=== PATIENT | male | born 1950 | race Caucasian/White ===

== ENCOUNTER 2020-06-17 08:56 | Emergency (ER) | payer MEDICARE, SELFPAY ==
[2020-06-17 09:02] VITALS: BP 133/78; PULSE 83; RESP 14; TEMP 36.8; O2SAT 99; BMI 22.0
--- NOTE | 2020-06-17 09:08 | CT_ITS ---
WS: [id number] CT HEAD TECHNIQUE: Noncontrast CT of the head obtained from the skullbase to the vertex. CLINICAL INFORMATION: headache COMPARISON: MRI 5 18,016 DLP: 702.[address] scans at [facility] use at least one of these dose optimization techniques: automat ed exposure control; mA and/or kV adjustment per patient size (includes targeted exams where dose is matched to clinical indication); or iterative reconstruction. FINDINGS: No evidence of intracranial hemorrhage or mass effect. Ventricular system and basal cisterns are ross nt. Mild small vessel changes with mild parenchymal volume loss. No extra-axial fluid collections. No evidence of mass or mass effect. Normal sprague-white differentiation. Paranasal sinuses and mastoid air cells are well aerated. .Normal visualized soft tissues. CT/CT head wo con* [id number] IMPRESSION: 1. No evidence of intracranial hemorrhage or mass effect. 2. Mild small vessel changes. Mild parenchymal volume loss. 3. No acute intracranial findings. Attempted Casey Narayan DO at 06/17/2020 9:46 AM.
--- NOTE | 2020-06-17 09:31 | CT_ITS ---
WS: [id number] CT CERVICAL SPINE TECHNIQUE: Noncontrast CT of the cervical spine with coronal and sagittal reformatted images. CLINICAL INFORMATION: neck pain COMPARISON: None. DLP: 406.[address] scans at [facility] use at least one of these dose optimization techniques: automat ed exposure control; mA and/or kV adjustment per patient size (includes targeted exams where dose is matched to clinical indication); or iterative reconstruction. FINDINGS: Straightening of the normal cervical lordosis. Moderate spondylitic changes. Disc space narrowing wit h osteophytic ridging worse at C5-C6 and C6-C7. Normal C1-C2 articulation. Normal C1 ring. C2-C3: Mild left and no significant right foraminal narrowing. Moderate left facet arthropathy. Tiny central protrusion. Mild central canal stenosis. C3-C4: Shallow central disc protrusion. Mild central canal stenosis. Moderate right and no significan t left foraminal narrowing. Moderate facet arthropathy. C4-C5: Disc osteophyte complex with moderate central canal stenosis. Moderate left facet arthropathy. Moderate left and no significant right foraminal narrowing. C5-C6: Disc osteophyte complex with endplate ridging. Moderate central canal stenosis. Severe left an d mild right bony foraminal narrowing. Mild facet arthropathy. C6-C7: Left eccentric disc osteophytic ridging. Severe left and mild right bony foraminal narrowing. Mild central canal stenosis. C7-T1: Osteophytic ridging. Mild left and no significant right foraminal narrowing. Lung apices are w ell aerated. Solid right parotid lesion measuring 1.6 x 1.9 CM. This appears slightly increased in size since 2016 . Recommend interval follow-up with contrast-enhanced neck CT and ENT consultation. CT/CT cervical spin wo con* [id number] IMPRESSION: 1. Moderate spondylitic changes with straightening of the normal cervical lord osis. 2. Moderate central canal stenosis worse at C4-C5 C5-C6 and C6-C7 due to disc osteophyte complexes. Recommend further evaluation with MRI. 3. Multilevel moderate to severe bony foraminal narrowing worse at right C3-C4 , left C4-C5, left C5-C6 and left C6-C7. 4. Moderate to advanced asymmetric facet arthropathy worse at right C3-C4, lef t C4-C5, 5. Solid right parotid lesion suspicious for parotid neoplasm more prominent c ompared to 2016 today measuring 1.6 x 1.9 CM. Recommend follow-up contrast-enha nced neck CT and ENT consultation. Notified Casey Narayan DO at 06/17/2020 10:30 AM.
[2020-06-17 09:38] VITALS: BP 137/84; RESP 18; O2SAT 96
[2020-06-17 09:42] LABS: Basophils # 0.1 10^3/uL (0.0-0.1); Basophils % 0.4 %; Eosinophils # 0.3 10^3/uL (0.0-0.8); Eosinophils % 1.9 %; Hematocrit 46.7 % (42.0-52.0); Hemoglobin 15.5 g/dL (11.7-16.6); Lymphocytes # 2.4 10^3/uL (0.8-4.8); Lymphocytes % 16.9 %; Mean Corpuscular HGB Conc 33.2 g/dL (30.0-36.0); Mean Corpuscular Hemoglobin 30.8 pg (28.0-34.0); Mean Corpuscular Volume 92.7 fL (80-94); Mean Platelet Volume 9.1 fL (7.4-10.4); Monocytes # 1.1 10^3/uL (0.2-0.9); Monocytes % 7.9 %; Neutrophils # 10.29 10^3/uL (1.8-7.7); Neutrophils % 72.5 %; Nucleated Red Blood Cells % 0 %; Platelet Count 406 10^3/cmm (130-400); Red Blood Count 5.04 10^6/uL (4.1-5.3); Red Cell Distribution Width 15.2 % (12.1-15.1); White Blood Count 14.2 10^3/uL (4.0-10.0)
[2020-06-17 10:01] VITALS: BP 130/83; PULSE 94; RESP 18; O2SAT 98
[2020-06-17 10:04] LABS: Alanine Aminotransferase 11 U/L (0-41); Albumin Level 4.6 g/dL (3.5-5.2); Alkaline Phosphatase 71 IU/L (40-130); Anion Gap 17.5 (5-19); Aspartate Amino Transferase 14 U/L (0-40); Blood Urea Nitrogen 11 mg/dL (8-23); Calcium 9.3 mg/dL (8.5-10.5); Carbon Dioxide 22 mmol/L (22-29); Chloride 102 mmol/L (98-107); Globulin 3.2 g/dL (1.3-4.6); Glucose 95 mg/dL (65-115); Osmolality Calculated 283 mOsm/kg (285-295); Potassium 4.5 mmol/L (3.5-5.1); Sodium 137 mmol/L (136-145); Total Bilirubin 0.3 mg/dL (0.15-1.2); Total Protein 7.8 g/dL (6.6-8.7)
[2020-06-17 10:21] LABS: Add Urine Microscopic? NO
[2020-06-17 10:27] LABS: Bilirubin Urine Neg (Negative); Blood Urine Neg (Negative); Glucose Urine UA Norm (Normal); Ketones Urine 1+ (Negative); Leukocyte Esterase Urine Negative (Negative); Nitrate Urine Negative (Negative); Protein Urine Neg (Negative); Specific Gravity, Urine 1.015 (1.005-1.030); Urine Appearance Clear (CLEAR); Urine Color Yellow (Yellow); Urobilinogen Urine Norm (Negative)
[2020-06-17 11:00] VITALS: BP 132/98; PULSE 84; RESP 18; O2SAT 97
--- NOTE | 2020-06-17 11:01 | W.ED.HA ---
HPI - Headache General: Chief Complaint: Headache Stated Complaint: HEAD PAIN, Time Seen by Provider: 06/17/20 09:04 History of Present Illness: HPI Narrative: 69-year-old male presents the emergency room with complaint of headache and neck pain for the last week he was seen by a midlevel and started on Keflex for a cellulitis was seen back by Dr. Herman today at the urgent care referred here he was concerned because of the neck and headache pain that he needed more advanced imaging. Does get some pain radiating down from his head down to the neck but does not radiate down into the arms or hands fully. This is been waxing and waning he is states the pain now is at a level of 3 of 10 but at times will get up to 10 of 10. He has not had any advanced imaging. MD elicited complaint: headache Onset (ago): week(s) (1) Onset description: suddenly Location: occipital and down into neck Severity: severe Quality & Timing: sharp and intermittent Exacerbating factors: movement of head/neck Relieving factors: rest Associated symptoms: Deny chest pain, confusion, cough, diaphoresis, eye pain, eye redness, fever(s), lightheadedness, loss of vision, malaise, nausea, neck stiffness, numbness, paresthesias, pre-syncope, rash, seizures, short of breath, sound sensitivity, syncope, vomiting or weakness Treatments prior to arrival: acetaminophen Review of Systems Const: Denies: fever(s), malaise or diaphoresis ENMT: Denies: throat pain, ear or mastoid pain, nasal discharge or nasal congestion Card: Denies: chest pain, lightheadedness, syncope or pre-syncope Resp: Denies: dyspnea, productive cough or non-productive cough GI: Denies: nausea or vomiting : Denies: flank pain, dysuria, urinary frequency or urinary urgency Skin/Breast: Denies: rash Neuro: Denies: confusion PFSH ED PFSH: Medical History Basal cell carcinoma Nose COPD (chronic obstructive pulmonary disease) Dementia 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 Neuropathy Unilateral occipital headache Social History Smoking and tobacco status: current every day smoker cigarettes Packs smoked per day: 0.5 Physical Exam Const: COMMON NORMALS: no acute distress GENERAL APPEARANCE: cooperative and comfortable ORIENTATION/CONSCIOUSNESS: Yes awake, Yes oriented to person, Yes oriented to place and Yes oriented to time HENMT: COMMON NORMALS: normocephalic, atraumatic and hearing grossly normal bilaterally HEAD & SCALP: normocephalic and atraumatic Eye: COMMON NORMALS: Equal, round and reactive pupils present, EOMs intact bilaterally, conjunctivae normal and no scleral icterus CONJUNCTIVA: Yes conjunctivae normal PUPIL: Yes Equal, round and reactive pupils present Neck/C-Spine: COMMON NORMALS: full ROM, no lymphadenopathy, supple and no JVD Lymph: LYMPHATIC: no lymphadenopathy noted and no lymphedema noted Resp: COMMON NORMALS: normal respiratory effort, No retractions, No use of accessory muscles and clear to auscultation bilaterally AUSCULTATION: clear to auscultation bilaterally Cardio: COMMON NORMALS: no JVD, regular rate, regular rhythm and No murmurs present (Cardio) RATE: regular rate RHYTHM: regular rhythm GI: COMMON NORMALS: Soft to palpation and No hepatosplenomegaly present AUSCULTATION: Yes normoactive bowel sounds PALPATION: Yes Soft to palpation, No Tenderness to palpation present (GI), No Guarding due to palpation present (GI) and Yes No hepatosplenomegaly present Extremity: COMMON NORMALS: normal to inspection, capillary refill normal, no clubbing, cyanosis or edema, no calf tenderness and no pedal edema Neuro: SENSORIUM/ORIENTATION: Yes oriented to person, Yes oriented to place and Yes oriented to time Skin: COMMON NORMALS: no rashes or lesions noted GENERAL SKIN EXAM: no rashes or lesions noted Course Vital Signs: Vital signs: Vital Signs Temperature 98.2 F 06/17/20 09:02 Pulse Rate 92 06/17/20 11:24 Respiratory Rate 18 06/17/20 11:24 Blood Pressure 132/98 06/17/20 11:24 Pulse Oximetry 95 06/17/20 11:24 MDM - Headache MDM Narrative: Medical decision making narrative: The source of his pain is mostly musculoskeletal he did have some stenosis in both central and foraminal on his CT he probably will require more advanced imaging encouraged him to follow-up with his primary care doctor to discuss the need for that. Lab Data: Labs: Lab Results 09/06/17/20 06/17/20 Range/Units 09:35 09:35 09:44 WBC 14.2 H (4.0-10.0) 10^3/ uL RBC 5.04 (4.1-5.3) 10^6/u L Hgb 15.5 (11.7-16.6) g/dL Hct 46.7 (42.0-52.0) % MCV 92.7 (80-94) fL MCH 30.8 (28.0-34.0) pg MCHC 33.2 (30.0-36.0) g/dL RDW 15.2 H (12.1-15.1) % Plt Count 406 H (130-400) 10^3/c mm MPV 9.1 (7.4-10.4) fL Neut % (Auto) 72.5 % Lymph % (Auto) 16.9 % [place]elope % (Auto) 7.9 % Eos % (Auto) 1.9 % Baso % (Auto) 0.4 % Neut # (Auto) 10.29 H (1.8-7.7) 10^3/u L Lymph # (Auto) 2.4 (0.8-4.8) 10^3/u L [place]elope # (Auto) 1.1 H (0.2-0.9) 10^3/u L Eos # (Auto) 0.3 (0.0-0.8) 10^3/u L Baso # (Auto) 0.1 (0.0-0.1) 10^3/u L Nucleated RBC % (a uto) 0 % Nucleated RBCs # 0.0 /100WBC Sodium 137 (136-145) mmol/L Potassium 4.5 (3.5-5.1) mmol/L Chloride 102 (98-107) mmol/L Carbon Dioxide 22 (22-29) mmol/L Anion Gap 17.5 (5-19) BUN 11 (8-23) mg/dL Creatinine 1.2 (0.7-1.2) mg/dL GFR Calculation Not Reportable Glucose 95 (65-115) mg/dL Calculated Osmolal ity 283 L (285-295) mOsm/k g Calcium 9.3 (8.5-10.5) mg/dL Total Bilirubin 0.3 (0.15-1.2) mg/dL AST 14 (0-40) U/L ALT 11 (0-41) U/L Alkaline Phosphata se 71 (40-130) IU/L Total Protein 7.8 (6.6-8.7) g/dL Albumin 4.6 (3.5-5.2) g/dL Globulin 3.2 (1.3-4.6) g/dL Urine Color Yellow (Yellow) Urine Appearance Clear (CLEAR) Urine pH 5.0 (5-7) Ur Specific Gravit y 1.015 (1.005-1.030) Urine Protein Neg (Negative) Urine Glucose (UA) Norm (Normal) Urine Ketones 1+ H (Negative) Urine Blood Neg (Negative) Urine Nitrate Negative (Negative) Urine Bilirubin Neg (Negative) Urine Urobilinogen Norm (Negative) mg/dL Ur Leukocyte Vesta ase Negative (Negative) Discharge Plan Discharge Patient Disposition: Home Clinical Impression: Cervical spinal stenosis, Foraminal stenosis of cervical region, Osteoarthritis cervical spine Condition: Stable Prescriptions: New hydrocodone-acetaminophen 5-325 mg tablet 1 tab PO Q6H PRN (Reason: pain) Qty: 15 RF: 0 Medrol (Vin) 4 mg tablets,dose pack See Rx Instructions .ROUTE .COMPLEX Qty: 21 RF: 0 No Action cephalexin 500 mg capsule 500 mg PO Q12H 10 Days Qty: 20 RF: 0 naproxen 500 mg tablet 500 mg PO BID PRN (Reason: pain) Qty: 20 RF: 0 aspirin [Deon Aspirin] 325 mg tablet 325 mg PO .q2 RF: 0 ibuprofen 200 mg capsule 200 mg PO Q6H PRN (Reason: Pain) RF: 0 Discharge Orders: Discharge Order (Routine); Ordered 06/17/20 Ordered By: Casey Narayan Referrals: Casey Narayan, DO [Emergency Provider] - Discharge Diet: Usual diet Discharge Activity: Limit activity as instructed Activity Restrictions/Additional Instructions: Follow-up with your primary care doctor within the week. Discharge Date/Time: 06/17/20 11:24 Coding Level of Care Code ED Goggles Assembler for Malcolmg Fwd Exam Comprehensive
[2020-06-17 11:24] VITALS: BP 132/98; PULSE 92; RESP 18; O2SAT 95
== END 2020-06-17 11:24 | disposition home or self-care (01) ==
PROVIDERS: Emergency Provider Family Medicine; Family Provider Family Medicine
DX: M48.02 Spinal stenosis, cervical region (principal); M47.812 Spondylosis without myelopathy or radiculopathy, cervical region; Z79.82 Long term (current) use of aspirin; J44.9 Chronic obstructive pulmonary disease, unspecified; F03.90 Unspecified dementia, unspecified severity, without behavioral disturbance, psychotic disturbance, mood disturbance, and anxiety; F17.210 Nicotine dependence, cigarettes, uncomplicated
CPT/HCPCS: 12345; 36415; 70450; 72125; 80053; 81003; 85025; 99282

== ENCOUNTER 2020-07-14 08:02 | Outpatient (CLI) | payer MEDICARE, SELFPAY ==
--- NOTE | 2020-07-14 08:21 | MR_ITS ---
WS: [id number] MRI CERVICAL SPINE with and without contrast. HISTORY: Abnormal Cervical CT - Mod central canal stenosis C4-C7 COMPARISON: 06/15/2020 MRI cervical spine performed with and without IV contrast. Mild LEFT convex curvature cervical spine. Mild straightening of the normal lordosis. Advanced degene rative disc disease most significant at C5-6 and C6-7. Endplate osteophytes at all levels. There is a small amount of reactive marrow edema in the C4 and C6 vertebral bodies. Signal within the cervical cord is normal. Visualized posterior fossa is unremarkable. Craniocervical junction, C1 and C2 relationship, odontoid process and soft tissues are normal. C2-C3: Normal. C3-C4: Mild diffuse osteophytic ridging and annular disc bulge with a central disc protrusion. Very m ild central stenosis. Osteophytes contribute to moderate RIGHT foraminal narrowing. C4-C5: Diffuse annular disc bulging and osteophytic ridging. There is marked facet joint arthritis en croaching posteriorly. Complete effacement of CSF resulting in moderate to severe central and moderat e bilateral foraminal stenosis. Increased inflammatory changes noted in the LEFT facet joint with inc reasing fluid C5-C6: Diffuse osteophytic ridging. No disc herniation or protrusion. Mild facet arthritis. Inflammat ory changes in the LEFT facet joint. Mild central with moderate bilateral foraminal stenosis. C6-C7: Mild annular disc bulging and osteophytic ridging. Mild central with moderate LEFT and mild RI GHT foraminal stenosis. C7-T1: Normal. Postcontrast images are negative for acute discitis. There is some very mild blush-like enhancement w ithin the C4 vertebral body and also involving the left-sided C3-4 and C4-5 facet joints and adjacent paravertebral soft tissues. No epidural collection. MR/MR cervical spine wo/w [id number] IMPRESSION: 1. Moderate to severe central and moderate bilateral foraminal stenosis at C4- 5. 2. Moderate RIGHT foraminal stenosis at C3-4. 3. Mild central stenosis at C5-6 with moderate bilateral foraminal stenosis. 4. Moderate LEFT foraminal stenosis at C6-7. 5. Enhancement and increased acute inflammatory changes involving the LEFT C3- 4 and C4-5 facet joints and adjacent soft tissues. Probably representing acute inflammatory arthritic process and possibly some mild instability.
== END 2020-07-14 08:03 | disposition home or self-care (01) ==
LOC: RADWPI 08:04
PROVIDERS: Family Provider Family Medicine; Visit Provider Family Medicine Adult Medicine
DX: M48.02 Spinal stenosis, cervical region (principal)
CPT/HCPCS: 72156; A9579

== ENCOUNTER → 2021-04-29 12:01 | Outpatient (BNVA) | payer MEDICARE, SELFPAY | PROVIDERS: Family Provider Family Medicine; PCP Family Medicine Adult Medicine; Visit Provider Otolaryngology | DX: J38.3 Other diseases of vocal cords (principal) | CPT/HCPCS: 87635 ==

== ENCOUNTER → 2021-05-06 12:06 | Day surgery (SDC) | payer MEDICARE, SELFPAY ==
[2021-05-05 14:53] VITALS: BMI 22.3
[2021-05-06 12:36] VITALS: BP 131/74; PULSE 100; RESP 18; TEMP 36.6; O2SAT 96
[2021-05-06] MEDS: sodium chloride 0.9% 1,000 ML 30 ML IV (12:55)
--- NOTE | 2021-05-06 13:26 | ANES.PREANE2 ---
Pre-Anesthetic Assessment Pre-Anesthetic Assessment: Height/Weight: Height 1.73 m Weight 66.678 kg Temp Pulse Resp BP Pulse Ox 97.8 F 100 18 131/74 96 05/06/21 12:36 05/06/21 12:36 05/06/21 12:36 05/06/21 12:36 05/06/21 12:36 Preop Diagnosis: Left anterior vocal cord exophytic lesion/hoarseness Proposed Procedure: Operation Date: 05/06/21 13:50 Proposed Procedures p Direct Laryngoscopy with biopsy [id number] j38.3(Not Applicable) - Juma Hull MD Was Beta Christianne taken within 24 hours: N/A Was Clonidine taken within 24 hours: N/A Last intake: Intake Last Liquid Date 05/06/21 Last Liquid Time 10:30 Last Solid Date 05/05/21 Last Solid Time 18:30 Social: Social History: Tobacco and No alcohol Exam: Pre-Anes Outpt Exam: alert, oriented x 3 and regular rate & rhythm Airway: Submandibular: WNL Cervical ROM: WNL MP: 2 Dentition: Chipped Additional comments: Poor dentition, hoarseness Pulmonary: Pulmonary: COPD : : Chronic renal Insufficiency Anesthetic Plan: ASA status: 3 Anesthesia: General Risk of > 500 ml blood loss (7ml/kg in children): No Meds/Allergies Current Medications: Current Medications Generic Name Dose Route Start Last Admin Trade Name Freq PRN Reason Stop Dose Admin Sodium Chloride 1,000 mls @ 30 ml s/hr 05/06/21 12:30 05/06/21 12:55 Sodium Chloride 0.9% IV 05/07/21 12:29 30 mls/hr .Q24H LIBIA Administration PFSH Anesthesia PFSH: Medical History Allergies Basal cell carcinoma Chronic hoarseness CKD (chronic kidney disease) stage 2, GFR 60-89 ml/min COPD (chronic obstructive pulmonary disease) COPD (chronic obstructive pulmonary disease) case management patient Degenerative cervical spinal stenosis Dementia Facial skin lesion 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
--- NOTE | 2021-05-06 13:42 | SUR.PREOP ---
WHEN ASKED IF PATIENT HAS FAMILY IN WAITING ROOM, PATIENT STATED HE WAS PLANNING ON DRIVING HIMSELF HOME. DOCTOR DAI THEN DISCUSSED PLAN OF CARE WITH PATIENT. PATIENT THEN DECIDED TO CANCEL SURGERY UNTIL HE HAD A RIDE HOME. DOCTOR YE INFORMED, STATED THAT PATIENT CAN CALL OFFICE TO RESCHEDULE . PATIENT INFORMED OF OPTIONS AND LEFT IN STABLE CONDITION.
== END | disposition home or self-care (01) ==
PROVIDERS: PCP Family Medicine Adult Medicine; Visit Provider Otolaryngology
PROC: 0CJS8ZZ Inspection of Larynx, Via Natural or Artificial Opening Endoscopic (ICD-10-PCS; principal; 2021-05-06 13:50)
DX: J38.3 Other diseases of vocal cords (principal); Z53.8 Procedure and treatment not carried out for other reasons
CPT/HCPCS: J7030

== ENCOUNTER → 2021-07-31 07:59 | Outpatient (BNVA) | payer MEDICARE, SELFPAY | PROVIDERS: PCP Family Medicine Adult Medicine; Visit Provider Otolaryngology | DX: J38.3 Other diseases of vocal cords (principal); Z20.822 Contact with and (suspected) exposure to COVID-19 | CPT/HCPCS: 87635 ==

== ENCOUNTER 2021-08-05 07:34 | Day surgery (SDC) | payer MEDICARE, SELFPAY ==
[2021-08-04 16:11] VITALS: BMI 23.6
[2021-08-05 08:02] VITALS: BP 124/72; PULSE 108; RESP 17; TEMP 36.9; O2SAT 97
--- NOTE | 2021-08-05 08:18 | ECG_ITS ---
[facility] Test Date: 2021-08-05 Pat Name: Simon Villavicencio Department: Room: Gender: Male Erp Consultant: : 1950 Requested By: Estrellita Pulido Order Number: [id number] Newman MD: Mirian Mckenzie M.D. Measurements Intervals [place] Rate: 92 P: 74 OK: 149 QRS: 30 QRSD: 88 T: 63 QT: 326 QTc: 404 Interpretive Statements SINUS RHYTHM No previous ECG available for comparison Electronically Signed On 08-05-2021 20:48:46 TSO by iMrian Mckenzie M.D. [email or web address]
[2021-08-05] MEDS: sodium chloride 0.9% 1,000 ML 30 ML IV (08:21)
[2021-08-05 08:35] LABS: Basophils # 0.1 10^3/uL (0.0-0.1); Basophils % 0.5 %; Eosinophils # 0.4 10^3/uL (0.0-0.8); Eosinophils % 3.2 %; Hematocrit 44.3 % (42.0-52.0); Hemoglobin 14.9 g/dL (11.7-16.6); Lymphocytes # 2.8 10^3/uL (0.8-4.8); Lymphocytes % 24.2 %; Mean Corpuscular HGB Conc 33.6 g/dL (30.0-36.0); Mean Corpuscular Hemoglobin 31.1 pg (28.0-34.0); Mean Corpuscular Volume 92.5 fl (80-94); Monocytes # 1.3 10^3/uL (0.2-0.9); Monocytes % 11.2 %; Neutrophils % 60.4 %; Nucleated Red Blood Cells % 0 %; Platelet Count 460 10^3/cmm (130-400); Red Blood Count 4.79 10^6/uL (4.1-5.3); Red Cell Distribution Width 14.6 % (12.1-15.1); White Blood Count 11.7 10^3/uL (4.0-10.0)
--- NOTE | 2021-08-05 08:53 | W.PM.OPSUD ---
Surgery/Procedure H&P Update DATE OF PROCEDURE: August 05, 2021 DATE H&P PERFORMED: 07/28/21 H&P UPDATE INFORMATION: I have reviewed H&P completed within last 30 days, I have examined patient prior to procedure and No changes to prior documentation PREOP DIAGNOSIS: Left true vocal cord mass/chronic hoarseness PLANNED PROCEDURE: Operation Date: 08/05/21 09:35 Proposed Procedures p Direct Laryngoscopy w/ Biopsy [id number] J38.3(Not Applicable) - Juma Hull MD
[2021-08-05 08:58] LABS: Anion Gap 13.6 (5-19); Blood Urea Nitrogen 14 mg/dL (8-23); Calcium 9.4 mg/dL (8.5-10.5); Carbon Dioxide 26 mmol/L (22-29); Chloride 102 mmol/L (98-107); Glucose 105 mg/dL (65-115); Osmolality Calculated 285 mOsm/kg (285-295); Potassium 4.6 mmol/L (3.5-5.1); Sodium 137 mmol/L (136-145)
--- NOTE | 2021-08-05 09:00 | ANES.PREANE2 ---
Pre-Anesthetic Assessment Pre-Anesthetic Assessment: Height/Weight: Height 1.73 m Weight 70.307 kg Temp Pulse Resp BP Pulse Ox 98.5 F 108 H 17 124/72 97 08/05/21 08:02 08/05/21 08:02 08/05/21 08:02 08/05/21 08:02 08/05/21 08:02 Preop Diagnosis: Left true vocal cord mass/chronic hoarseness Proposed Procedure: Operation Date: 08/05/21 09:35 Proposed Procedures p Direct Laryngoscopy w/ Biopsy [id number] J38.3(Not Applicable) - Juma Hull MD Familial anesthetic complications: none Was Beta Christianne taken within 24 hours: N/A Was Clonidine taken within 24 hours: N/A Last intake: Intake Last Liquid Date 08/04/21 Last Liquid Time 17:00 Last Solid Date 08/04/21 Last Solid Time 17:00 Social: Social History: Tobacco and No alcohol Exam: Pre-Anes Outpt Exam: alert, oriented x 3, clear to auscultation bilaterally and regular rate & rhythm Airway: Cervical ROM: WNL MP: 3 Dentition: Other (poor dentition) Pulmonary: Pulmonary: COPD : : Chronic renal Insufficiency Anesthetic Plan: ASA status: 3 Anesthesia: General Risk of > 500 ml blood loss (7ml/kg in children): No Meds/Allergies Current Medications: Current Medications Generic Name Dose Route Start Last Admin Trade Name Freq PRN Reason Stop Dose Admin Sodium Chloride 1,000 mls @ 30 ml s/hr 08/05/21 08:15 08/05/21 08:21 Sodium Chloride 0.9% IV 08/06/21 08:14 30 mls/hr .Q24H LIBIA Administration PFSH Anesthesia PFSH: Medical History Allergies Basal cell carcinoma Chronic hoarseness CKD (chronic kidney disease) stage 2, GFR 60-89 ml/min COPD (chronic obstructive pulmonary disease) COPD (chronic obstructive pulmonary disease) case management patient Degenerative cervical spinal stenosis Dementia 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 Neuropathy Restless legs syndrome Vaccine for streptococcus pneumoniae and influenza Data Anesthesia CBC & Chem 7: 08/05/21 08:25 08/05/21 08:25 Other Labs: Laboratory Results - last 48 hr 08/05/21 08/05/21 08:25 08:25 WBC 11.7 H RBC 4.79 Hgb 14.9 Hct 44.3 MCV 92.5 MCH 31.1 MCHC 33.6 RDW 14.6 Plt Count 460 H MPV 9.0 Neut % (Auto) 60.4 Lymph % (Auto) 24.2 [place] % (Auto) 11.2 Eos % (Auto) 3.2 Baso % (Auto) 0.5 Neut # (Auto) 7.10 Lymph # (Auto) 2.8 [place] # (Auto) 1.3 H Eos # (Auto) 0.4 Baso # (Auto) 0.1 Nucleated RBC % (auto) 0 Nucleated RBCs # 0.0 Sodium 137 Potassium 4.6 Chloride 102 Carbon Dioxide 26 Anion Gap 13.6 BUN 14 Creatinine 1.0 GFR Calculation Not Reportable Glucose 105 Calculated Osmolality 285 Calcium 9.4 Cardiac Studies: No Data to Display
[2021-08-05] MEDS: EPINEPHrine 1 mg/mL INJ XX (10:30)
[2021-08-05 10:41] VITALS: BP 124/70; PULSE 86; RESP 17; TEMP 36.3; O2SAT 98
--- NOTE | 2021-08-05 10:41 | PM.OP ---
Operative Report Date of procedure: August 05, 2021 Pre-op Diagnosis: Left true vocal cord mass/chronic hoarseness Post-op diagnosis: same Post-op Findings: Exophytic mass extending from the superior surface of the left anterior true vocal cord medially and then subglottically for about 5 mm. Procedure Done: Direct suspension microscopic laryngoscopy with excisional biopsy left vocal cord Implants: No implants Specimens removed/disposition: Lesion left anterior true vocal cord Pathology: Lesion anterior left true vocal cord Surgeon: Juma Hull Anesthesia: General Estimated blood loss (mL): 5 Complications: No complications encountered. Findings: Findings at the time of surgery are left anterior true vocal cord exophytic mass measuring approximately 3 x 4 x 7 mm. Extension subglottically. Approached anterior commissure. Condition: stable Disposition: PACU Brief History: 71-year-old male patient with a left anterior true vocal cord mass found on flexible laryngoscopy when he was seen in the office for his chronic hoarseness. Here to have this lesion biopsied and/or excised as possible. The procedure its risks and complications were described in detail to the patient in the office setting. These risks included bleeding infection scarring voice change recurrence need for additional treatment and potential damage to his teeth as well as anesthetic risks such as heart attack or stroke or not surviving the surgery. With these things understood informed consent was granted and witnessed. Procedure: Description of procedure: The patient was placed on the operating table in the supine position. Adequate general endotracheal tube anesthesia was obtained. The table was rotated 90 degrees. The head was dropped slightly to the horizontal. Eyes were taped shut and a head drape was applied in usual fashion. A timeout was accomplished identifying the patient date of planned procedure allergies fire risk and medications given. With all in agreement the procedure continued. A tooth guard was placed up over his remaining upper dentition which were in poor condition. An anterior commissure laryngoscope was passed over this mouthguard and pushing the endotracheal tube posteriorly and tongue anteriorly the scope was inserted to the hypopharynx and then laryngeal area. When an appropriate location this was suspended from a [place] stand. A microscope with a 400 lens was then brought in for better visualization. With anterior pressure applied the lesion came into appropriate visualization. It appeared as if this was a red exophytic mass hard in texture and extended from the superior and medial surface down subglottically for about 5 mm. It appeared to be up against the anterior commissure but not invading into it. Using cup forceps the specimen was removed in multiple pieces. It appeared as if there was firm fixation to the undersurface tissues and suspicious for malignancy in that regard. After removing as much of the masses I could I applied a cottonoid with 1-1000 epinephrine to the area to control bleeding. After few minutes I remove this. An LTA was dispensed to the larynx and hypopharynx and subglottic area. This was done to try and prevent postoperative coughing. The suspension was taken down. The mouthguard was removed and the scope was removed. The cottonoid had previously been removed. The throat was then suctioned clean. The patient was then returned to anesthesia for wake-up and extubation. He tolerated the procedure well and estimated blood loss of 5 mL and arrived in recovery in stable condition.
[2021-08-05 10:46] VITALS: BP 103/67; PULSE 78; RESP 18; TEMP 36.3; O2SAT 98
[2021-08-05 10:50] VITALS: BP 116/74; PULSE 87; RESP 13; TEMP 36.5; O2SAT 97
[2021-08-05 10:55] VITALS: BP 118/56; PULSE 86; RESP 15; TEMP 36.5; O2SAT 98
[2021-08-05 11:22] VITALS: BP 116/68; PULSE 87; RESP 16; TEMP 36.5; O2SAT 98
--- NOTE | 2021-08-05 15:42 | ANE.PACU2 ---
Inpatient post-anesthesia follow up: Airway intact: Yes Vital signs: Temperature 97.7 F Pulse Rate 87 Respiratory Rate 16 Blood Pressure 116/68 Pulse Oximetry 98 Oxygen Delivery Me thod Room Air Oxygen Flow Rate 8 Fraction of Inspir ed Oxygen Hydration adequate: Yes Nausea and vomiting: No Pain level: 2 Mental status: Baseline
== END 2021-08-05 11:32 | disposition home or self-care (01) ==
PROVIDERS: Anesthesiology; PCP Family Medicine Adult Medicine; Visit Provider Otolaryngology
PROC: 0CJS8ZZ Inspection of Larynx, Via Natural or Artificial Opening Endoscopic (ICD-10-PCS; CPT 31535; principal; 2021-08-05 09:25)
DX: J38.3 Other diseases of vocal cords (principal); C32.0 Malignant neoplasm of glottis; R49.0 Dysphonia; J44.9 Chronic obstructive pulmonary disease, unspecified; F17.210 Nicotine dependence, cigarettes, uncomplicated; N18.2 Chronic kidney disease, stage 2 (mild)
CPT/HCPCS: 31535; 36415; 80048; 85025; 88305; 93005; 96365; J0171; J0690; J1100; J2704; J3010; J7030

== ENCOUNTER 2021-08-27 08:49 | Outpatient (CLI) | payer MEDICARE, SELFPAY ==
--- NOTE | 2021-08-27 10:00 | N.ONRAD NP_ITS ---
Radiation Oncology Consultation Patient Name: Simon Villavicencio Date of : 1950 Date of Service: 08/27/2021 Attending Physician: Korey Maria M.D. Simon Villavicencio was seen in consultation this morning at the request of Juma Hull M.D. for consideration of head and neck radiotherapy for the management of a recently diagnosed glottic cancer. He initially presented to his primary care physician in March with intermittent hoarseness for several months. He was referred to otolaryngology for further management. A flexible laryngoscopy was performed by Juma Hull M.D. on April 23, 2021. An exophytic mass was present on the left vocal cord. Normal vocal cord mobility was reported. A direct microscopic laryngoscopy with excisional biopsy of the of left vocal cord lesion was completed on July identified the left true vocal cord mass extending to the subglottis. A moderately differentiated, invasive squamous cell carcinoma was diagnosed (the pathology report was personally reviewed in [facility]). The patient was evaluated for consideration of definitive glottic radiotherapy. I discussed with Mr. 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 The T2 designation is on account of subglottic extension. I also reviewed The National Comprehensive Cancer Network Guidelines endorsing partial laryngectomy or radiotherapy. I would recommend accelerated fractionated radiotherapy as per the [employer] trial that randomized T1 and T2 glottic cancer patients to conventional fractionation or hypofractionation. The study was did not demonstrate inferiority of the accelerated treatment (local progression-free survival trended positively for the hypofractionated arm). Prior to beginning treatment, a computed tomographic radiotherapy planning scan will be acquired to delineate the clinical target volume. The potential toxicities of head and neck radiotherapy were reviewed. He has verbalized understanding would like to proceed as recommended. The patient's medical treatment plan has been discussed with Juma Hull M.D. Signed by: Dr. Korey Maria 08/27/2021 9:58:41 AM
== END 2021-08-27 08:50 | disposition home or self-care (01) ==
LOC: ONCMED 08:56
PROVIDERS: PCP Family Medicine Adult Medicine; Visit Provider Radiology Radiation Oncology
DX: C32.0 Malignant neoplasm of glottis (principal); Z79.899 Other long term (current) drug therapy
CPT/HCPCS: 99205

== ENCOUNTER 2021-09-24 06:19 | Outpatient (RCR) | payer MEDICARE, SELFPAY ==
--- NOTE | 2021-09-01 | CT_ITS ---
Radiation Therapy Planning CT images; total exam DLP: 1296.27 mGy-cm MTDD
--- NOTE | 2021-09-07 11:40 | ONCRAD TMN_ITS ---
Radiation Oncology Treatment Management Note Patient Name: Simon Villavicencio Date of : 1950 Date of Service: 09/07/2021 Attending Physician: Korey Maria M.D. 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 The T2 designation is on account of subglottic extension. He initially presented to his primary care physician in March with intermittent hoarseness for several months. He was referred to otolaryngology for further management. A flexible laryngoscopy was performed by Juma Hull M.D. on April 23, 2021. An exophytic mass was present on the left vocal cord. Normal vocal cord mobility was reported. A direct microscopic laryngoscopy with excisional biopsy of the left vocal cord lesion was completed on August 05, 2021 identified the left true vocal cord mass extending to the subglottis. A moderately differentiated, invasive squamous cell carcinoma was diagnosed. The patient has received 2.25 Gy of a prescribed 67.5 Burch with a 3D-conformal radiotherapy plan utilizing opposed lateral portal hess with a wedge pair. Upon review of systems, he denied any complaints related to radiotherapy. On physical examination, the patient weighed 147 lbs. His temperature was 98.6 ???F with a blood pressure of 127/74 mmHg. His pulse was 94 bpm and the respiratory rate was 18. No erythema within the treatment hess. Continue glottic radiotherapy as prescribed. Signed by: Dr. Korey Maria 09/07/2021 11:39:32 AM
--- NOTE | 2021-09-14 11:26 | ONCRAD TMN_ITS ---
Radiation Oncology Treatment Management Note Patient Name: Simon Villavicencio Date of : 1950 Date of Service: 09/14/2021 Attending Physician: Korey Maria M.D. 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 The T2 designation is on account of subglottic extension. He initially presented to his primary care physician in March with intermittent hoarseness for several months. He was referred to otolaryngology for further management. A flexible laryngoscopy was performed by Juma Hull M.D. on April 23, 2021. An exophytic mass was present on the left vocal cord. Normal vocal cord mobility was reported. A direct microscopic laryngoscopy with excisional biopsy of the left vocal cord lesion was completed on August 05, 2021 identified the left true vocal cord mass extending to the subglottis. A moderately differentiated, invasive squamous cell carcinoma was diagnosed. The patient has received 2.25 Gy of a prescribed 67.5 Burch with a 3D-conformal radiotherapy plan utilizing opposed lateral portal hess with a wedge pair. Upon review of systems, he denied any complaints related to radiotherapy. On physical examination, the patient weighed 149 lbs. His temperature was 98.6 ???F and the blood pressure was 121/74 mmHg. His pulse was 98 bpm and the respiratory rate was 18. There was no erythema within the treatment hess. Continue glottic radiotherapy as planned. Signed by: Dr. Korey Maria 09/14/2021 11:25:40 AM
--- NOTE | 2021-09-21 12:28 | ONCRAD TMN_ITS ---
Radiation Oncology Weekly Treatment Management Patient: Maye Montes> MR#: [id number] : 1950> Attending Physician: Dr. Emil Almanzar Date of Service: 09/21/2021 Referring Physician(s) : Juma Hull M.D. Diagnosis: C32.0 - Malignant neoplasm of glottis, Diagnosed 08/05/2021 (Active) Stage II, T2, N0, M0 Radiotherapy to date: Course: Glottis 2020, Treatment Site: Glottic Ca - T2, Ref. ID: [id number], Energy: 6X, Dose/Fx (cGy): 225, #Fx: , Dose Correction (cGy): 0, Total Dose (cGy): 2,250, Start Date: 09/07/2021, Elapsed Days: 14 Reason for visit: The patient is being seen today as part of their regularly scheduled weekly on treatment visits to assess for acute toxicities from radiotherapy. 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 He had some discomfort last week but refused pain medication. His sore throat worsened over the weekend and he would like to try pain medication at this time. Review of Systems: He has no complaints related to the skin in the treatment volume. However some redness has developed. He has discomfort in his throat with swallowing food and is eating a softer diet. He also notices a lump sensation in his throat when he swallows. He has no respiratory difficulty. Vital Signs: Performed on 09/21/2021 11:15 AM BMI - 22.564 kg/m2, Height - 68 in, Weight - 148.4 lbs, Temperature - 98.7 f, Pulse - 87 /min, Respiration - 18 /min, O2 Sat - 98 %, Pain - 3, Fatigue - 4 and BP - 117/ 75 mm(hg). Physical Exam: Alert, oriented, no acute distress. Lungs are clear without rales rhonchi or wheezes. Heart rhythm regular. The skin of his neck in the treatment area has mild erythema and dry desquamation. Imaging: Radiation therapy imaging related to accurate target localization (i.e. KV, MV and CBCT) was reviewed. Appropriate changes, if any, were made to ensure treatment accuracy. Plan: Discussed that soft diet is preferred, though not mandatory. Will prescribe elixir Tylenol with codeine, 240 mL, 2 teaspoons every 4 hours as needed. Discussed that it may be helpful to use it prior to meals. Will give samples of Aquaphor for the skin reaction. Discussed its use. He is already using aloe vera gel. I told him to compare the 2 and use whichever one he prefers. Signed by: Dr. Emil Almanzar 09/21/2021 12:27:42 PM
== END 2021-09-25 23:59 | disposition home or self-care (01) ==
LOC: ONCMED 06:19
PROVIDERS: PCP Family Medicine Adult Medicine; Visit Provider Specialist
DX: Z51.0 Encounter for antineoplastic radiation therapy (principal); C32.0 Malignant neoplasm of glottis
CPT/HCPCS: 77290; 77295; 77300; 77334; 77336; 77387; 77412

== ENCOUNTER 2021-10-20 06:32 | Outpatient (RCR) | payer MEDICARE, SELFPAY ==
--- NOTE | 2021-09-28 11:20 | ONCRAD TMN_ITS ---
Radiation Oncology Treatment Management Note Patient Name: Simon Villavicencio Date of : 1950 Date of Service: 09/28/2021 Attending Physician: Korey Maria M.D. 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 The T2 designation is on account of subglottic extension. He initially presented to his primary care physician in March with intermittent hoarseness for several months. He was referred to otolaryngology for further management. A flexible laryngoscopy was performed by Juma Hull M.D. on April 23, 2021. An exophytic mass was present on the left vocal cord. Normal vocal cord mobility was reported. A direct microscopic laryngoscopy with excisional biopsy of the left vocal cord lesion was completed on August 05, 2021 identified the left true vocal cord mass extending to the subglottis. A moderately differentiated, invasive squamous cell carcinoma was diagnosed. The patient has received 31.5 Gy of a prescribed 67.5 Burch with a 3D-conformal radiotherapy plan utilizing opposed lateral portal hess with a wedge pair. Upon review of systems, he described odynophagia (Codeine failed) and constipation. On physical examination, the patient weighed 148 lbs. His temperature was 98.2 ???F and the blood pressure was 131/78 mmHg. His pulse was 89 bpm and the respiratory rate was 18. There was a grade I erythema within the treatment hess. Continue glottic radiotherapy as prescribed. I will prescribe oxycodone elixir for odynophagia and magnesium citrate for constipation. Signed by: Dr. Korey Maria 09/28/2021 11:17:57 AM
--- NOTE | 2021-10-05 11:10 | ONCRAD TMN_ITS ---
Radiation Oncology Treatment Management Note Patient Name: Simon Villavicencio Date of : 1950 Date of Service: 10/05/2021 Attending Physician: Korey Maria M.D. 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 The T2 designation is on account of subglottic extension. He initially presented to his primary care physician in March with intermittent hoarseness for several months. He was referred to otolaryngology for further management. A flexible laryngoscopy was performed by Juma Hull M.D. on April 23, 2021. An exophytic mass was present on the left vocal cord. Normal vocal cord mobility was reported. A direct microscopic laryngoscopy with excisional biopsy of the left vocal cord lesion was completed on August 05, 2021 identified the left true vocal cord mass extending to the subglottis. A moderately differentiated, invasive squamous cell carcinoma was diagnosed. The patient has received 42.75 Gy of a prescribed 67.5 Burch with a 3D-conformal radiotherapy plan utilizing opposed lateral portal hess with a wedge pair. Upon review of systems, he described skin irritation. On physical examination, the patient weighed 149 lbs. His temperature was 98.6 ???F and the blood pressure was 140/85 mmHg. His pulse was 99 bpm and the respiratory rate was 18. There was a grade II erythema with dry desquamation within the treatment hess. Continue glottic radiotherapy as planned. Continue Aloe moisturizer and apply Vaseline barrier. Signed by: Dr. Korey Maria 10/05/2021 11:09:02 AM
--- NOTE | 2021-10-12 10:24 | ONCRAD TMN_ITS ---
Radiation Oncology Treatment Management Note Patient Name: Simon Villavicencio Date of : 1950 Date of Service: 10/12/2021 Attending Physician: Korey Maria M.D. 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 The T2 designation is on account of subglottic extension. He initially presented to his primary care physician in March with intermittent hoarseness for several months. He was referred to otolaryngology for further management. A flexible laryngoscopy was performed by Juma Hull M.D. on April 23, 2021. An exophytic mass was present on the left vocal cord. Normal vocal cord mobility was reported. A direct microscopic laryngoscopy with excisional biopsy of the left vocal cord lesion was completed on August 05, 2021 identified the left true vocal cord mass extending to the subglottis. A moderately differentiated, invasive squamous cell carcinoma was diagnosed. The patient has received 42.75 Gy of a prescribed 67.5 Burch with a 3D-conformal radiotherapy plan utilizing opposed lateral portal hess with a wedge pair. Upon review of systems, he described continued skin complaints. On physical examination, the patient weighed 144 lbs. His temperature was 98.4 ???F and the blood pressure was 140/81 mmHg. His pulse was 120 bpm and the respiratory rate was 18. There was a grade II erythema with dry desquamation within the treatment hess. Continue glottic radiotherapy as prescribed. Signed by: Dr. Korey Maria 10/12/2021 10:22:32 AM
--- NOTE | 2021-10-19 11:52 | ONCRAD TMN_ITS ---
Radiation Oncology Treatment Management Note Patient Name: Simon Villavicencio Date of : 1950 Date of Service: 10/19/2021 Attending Physician: Korey Maria M.D. 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 The T2 designation is on account of subglottic extension. He initially presented to his primary care physician in March with intermittent hoarseness for several months. He was referred to otolaryngology for further management. A flexible laryngoscopy was performed by Juma Hull M.D. on April 23, 2021. An exophytic mass was present on the left vocal cord. Normal vocal cord mobility was reported. A direct microscopic laryngoscopy with excisional biopsy of the left vocal cord lesion was completed on August 05, 2021 identified the left true vocal cord mass extending to the subglottis. A moderately differentiated, invasive squamous cell carcinoma was diagnosed. The patient has received 65.25 Gy of a prescribed 67.5 Burch with a 3D-conformal radiotherapy plan utilizing opposed lateral portal hess with a wedge pair. Upon review of systems, he described improvement in his skin. On physical examination, the patient weighed 137 lbs. His temperature was 97.7 ???F and the blood pressure was 140/77 mmHg. His pulse was 105 bpm and the respiratory rate was 20. There was a grade II erythema with dry desquamation within the treatment hess. Continue glottic radiotherapy as planned. Signed by: Dr. Korey Maria 10/19/2021 11:51:35 AM
--- NOTE | 2021-10-20 10:45 | N.ONRD TS_ITS ---
Radiation OncologyTreatment Summary Patient Name: Simon Villavicencio Date of : 1950 Date of Service: 10/20/2021 Attending Physician: Korey Maria M.D. Simon Villavicencio has completed head and neck radiotherapy for the management of a clinical II (T2N0) glottic cancer specific to his diagnosis. The T2 designation is on account of subglottic extension. He initially presented to his primary care physician in March with intermittent hoarseness for several months. He was referred to otolaryngology for further management. A flexible laryngoscopy was performed by Juma Hull M.D. on April 23, 2021. An exophytic mass was present on the left vocal cord. Normal vocal cord mobility was reported. A direct microscopic laryngoscopy with excisional biopsy of the left vocal cord lesion was completed on August 05, 2021 identified the left true vocal cord mass extending to the subglottis. A moderately differentiated, invasive squamous cell carcinoma was diagnosed. Daily radiotherapy was administered between the dates of September 07, 2021 through October 20, 2021. A prescribed dose of 67.5 Gy was delivered in 30 fractions encompassing 44 elapsed days. The laryngeal skeleton was treated utilizing an HANNAH/JOHANSEN portal field arrangement. The HANNAH port employed gantry angle of 81??? with a 280??? collimator angle. The field size measure 3 cm x 3 cm within the X-direction and 7 cm x 0 cm within the Y-direction. The SSD measured 93.9 cm with the field delivering 136 monitor units. A 30??? enhanced dynamic wedge was utilized. The JOHANSEN port was arranged with a gantry angle of 277??? with a collimator angle of 254???. The field size measured 3 cm x 3 cm within X- direction and 7 cm x 0 cm within the Y-direction. The measured SSD was 93.9 cm with the field allocating 137 monitor units. A 30??? enhanced dynamic wedge was incorporated. All treatments were performed using the [employer] linear accelerator and an isocentric technique. The dose was calculated by Anisotropic Analytic Algorithm. Low energy photons were prescribed with the plan normalized to deliver 100% of the prescription dose to 100% of the planning target volume. Signed by: Dr. Korey Maria 10/20/2021 10:43:06 AM
== END 2021-10-26 23:59 | disposition home or self-care (01) ==
LOC: ONCMED 06:32
PROVIDERS: PCP Family Medicine Adult Medicine; Visit Provider Radiology Radiation Oncology
DX: Z51.0 Encounter for antineoplastic radiation therapy (principal); C32.0 Malignant neoplasm of glottis
CPT/HCPCS: 77336; 77387; 77412

== ENCOUNTER 2021-11-25 09:00 | Outpatient (RCR) | payer MEDICARE, SELFPAY ==
--- NOTE | 2021-11-25 09:27 | ONCRAD EPV_ITS ---
Radiation Oncology Follow-Up Note Patient Name: Simon Villavicencio Date of : 1950 Date of Service: 11/25/2021 Attending Physician: Korey Maria M.D. Simon Villavicencio returned to my office this morning for a scheduled follow-up appointment. He completed glottic radiotherapy in September for the management of a clinical II (T2N0) glottic cancer. The T2 designation is on account of subglottic extension. He initially presented to his primary care physician in March with intermittent hoarseness for several months. He was referred to otolaryngology for further management. A flexible laryngoscopy was performed by Juma Hull M.D. on April 23, 2021. An exophytic mass was present on the left vocal cord. Normal vocal cord mobility was reported. A direct microscopic laryngoscopy with excisional biopsy of the left vocal cord lesion was completed on August 05, 2021 identified the left true vocal cord mass extending to the subglottis. A moderately differentiated, invasive squamous cell carcinoma was diagnosed. Daily radiotherapy was administered between the dates of September 07, 2021 through October 20, 2021. A prescribed dose of 67.5 Gy was delivered in 30 fractions encompassing 44 elapsed days. On review of systems, He reported morning hoarseness. On physical examination, the patient weighed of 137 pounds. The temperature was 97.7???F. His blood pressure was 140/77 mmHg. The pulse was 105 bpm and his respiratory rate was 20 breaths per minute. Examination of the neck did not demonstrate any erythema. In summary, Mr. Villavicencio returned for a post-radiotherapy appointment. He has no sequelae from treatment. A recent direct laryngoscopy demonstrated mild erythema without abnormalities of the TVC nor subglottis. He will continue follow-up with otolaryngology as scheduled. Signed by: Dr. Korey Maria 11/25/2021 9:26:14 AM
== END 2021-12-24 23:59 | disposition home or self-care (01) ==
LOC: ONCMED 09:00
PROVIDERS: PCP Family Medicine Adult Medicine; Visit Provider Radiology Radiation Oncology
DX: C32.0 Malignant neoplasm of glottis (principal); R49.0 Dysphonia; L53.9 Erythematous condition, unspecified; Z79.899 Other long term (current) drug therapy; Z92.3 Personal history of irradiation
CPT/HCPCS: 99024

== ENCOUNTER 2024-10-31 08:37 | Outpatient (CLI) | payer MEDICARE, SELFPAY ==
--- NOTE | 2024-10-31 08:41 | CT_ITS ---
WS: [id number] CT NECK WITH CONTRAST HISTORY: OTALGIA, UNSPECIFIED EAR TECHNIQUE: Contiguous 2 mm axial images are performed through the neck with intravenous contrast. Sagittal and coronal reformats are also submitted. All CT scans at [facility] use at least one of these dose optimization techniques: automated exposure control; mA and/or kV adjustment per patient size (includes targeted exams where dose is matched to clinical indication); or iterative reconstruction. CONTRAST: CONTRAST: Omnipaque 350; 100 mL IV. 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 There is a lobulated low-attenuation mass in the LEFT Clark tonsil measuring 9 x 7 mm which was also present in 2020. Epiglottis and vocal cords are negative. No additional abnormalities at the tongue base. Pa rapharyngeal space is normal. Torus tubarius and fossa of Rosenmuller and parapharyngeal fat are normal. No significant lymphadenopathy is identified. Patient has a known RIGHT parotid gland mass which has increased in size since 2019. Mass measures 2.1 x 2.1 cm and extends over a length of 3.7 cm. There is near diffuse enhancement with a few cystic areas. Mass is predominantly within the superficial lobe of the parotid gland but does extend into the deep lobe. No additional mass in the RIGHT parotid gland. LEFT parotid gland is negative. Normal submandibular glands. Advanced degenerative changes in the cervical spine. Severe loss of disc space at C5-6 and C6-7. Visualized portions of the skull base demonstrate no abnormalities. Orbits and globes are within normal limits. No soft tissue masses. Visualized paranasal sinuses and mastoid air cells are normal. No fluid in the mastoid air cells. Internal and external auditory canals are free of cerumen and soft tissue. Lung apices are clear. CT/CT neck w con* [id number] IMPRESSION: 1. Increase in size of the enhancing RIGHT parotid gland mass since 06/17/2020. Mass now measures 2.1 x 2.1 x 3.7 cm as compared to 1.5 x 1.6 x 2.5 cm on the prior exam. As indicated on the prior study differential includes malignancy, W arthin's tumor and pleomorphic adenoma. No new parotid gland mass. 2. Stable low-attenuation LEFT Clark tonsil nodule measuring 9 x 7 mm. May be small mucous retention cyst. 3. 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 4. No cervical chain adenopathy.
[2024-10-31] MEDS: iohexol 350 mg/mL 500 mL Btl (per mL) IV (09:51)
[2024-10-31 09:56] LABS: Blood Urea Nitrogen 10 mg/dL (8-23)
== END 2024-10-31 08:38 | disposition home or self-care (01) ==
PROVIDERS: PCP Family Medicine Adult Medicine; Visit Provider Specialist
DX: H92.09 Otalgia, unspecified ear (principal); R93.89 Abnormal findings on diagnostic imaging of other specified body structures; M47.892 Other spondylosis, cervical region; R93.7 Abnormal findings on diagnostic imaging of other parts of musculoskeletal system
CPT/HCPCS: 70491; 82565; 84520

== ENCOUNTER 2024-12-14 07:58 | Outpatient (CLI) | payer MEDICARE, SELFPAY ==
--- NOTE | 2024-12-14 08:52 | PETR_ITS ---
PROCEDURE INFORMATION: Exam: PET/CT Skull Base to Mid-thigh Exam date and time: 12/14/2024 9:01 AM Age: 74 years old Clinical indication: Condition or disease; Primary cancer: Basal cell carcinoma of skin; HX of parotid cancer LABS AND CLINICAL REPORTS: Glucose: 113 mg/dl Treatment strategy for malignancy (PET staging): Initial Staging (PI) TECHNIQUE: Imaging protocol: Following at least four-hour fasting and following the injection of radiopharmaceutical, low dose CT images were obtained. Then, PET images were obtained. Attenuation corrected images were constructed using the CT scan. Fused images of PET and CT were reviewed. The standardized uptake values (SUV) reported below are maximum values within a region of interest, expressed in gm/ml. Exam includes orbital meatal line to mid-thigh. SUV normalization method: BodyWeight Radiopharmaceutical: 10.41 mCi F-18 FDG (Fluorodeoxyglucose), IV. Time of imaging post radiopharmaceutical administration: 47 minutes Injection site: right ac COMPARISON: CT neck w con* [id number] 10/31/2024 9:39 AM, MRI cervical spine 07/14/2020 FINDINGS: Limitations: Motion artifact. Brain: Visualized brain has normal physiologic uptake. Salivary glands: Uptake within a right parotid mass measuring 2.1 cm in the axial plane is identified, SUV max 15.2 on PET image 52. Pharynx: No abnormal uptake. Larynx: No abnormal uptake. Lungs, pleura and trachea: No abnormal uptake. Mild biapical pleural scarring is noted. Mild dependent streaky density in the lungs is consistent with atelectasis. Bilateral calcified nodules consistent with calcified granulomas are identified. Heart: Normal physiologic uptake. Mediastinal space: No abnormal uptake. Liver: No abnormal uptake. Calcified granulomas in the liver are present. Gallbladder and biliary ducts: No abnormal uptake. Pancreas: No abnormal uptake. Spleen: No abnormal uptake. Adrenal glands: No abnormal uptake. Kidneys and ureters: Normal physiologic uptake. Stomach and bowel: Elevated uptake in the posterior mid right colon is identified, SUV max 14.6 on PET image 215, without a well-defined lesion on the CT images. Assessment of the bowel is limited by nondistention. This uptake occurs superior to and separate from the level of the ileocecal valve. Elevated uptake in what appears to be a left mid pelvic small bowel loop is noted without a definite correlating lesion on the CT images. Possible wall thickening in this region, SUV max 7.7 on image 249. Reproductive: Moderate prominence of the prostate gland is noted. Regions of diffuse heterogeneous uptake in the prostate gland are noted, greatest superiorly, SUV max 3.6 on PET image 281. Vasculature: No abnormal uptake. Lymph nodes: Uptake within a lymph node posterior to the right parotid gland is noted, SUV max 5.1 measuring 3 mm in short axis on CT image 57. A precarinal lymph node measuring 1.9 x 1.1 cm on series 202, image 126 is identified, SUV max 2.8. Small benign-appearing calcified subcarinal and bilateral hilar lymph nodes are identified. Skeleton: Uptake within a region of periapical lucency in the 2nd most anterior right mandibular tooth is likely inflammatory, SUV max 5.0 on PET image 57. Degenerative changes throughout the spine are noted. Soft tissues: There are regions of physiologic appearing relatively symmetric muscular uptake without definite correlating lesions on the CT images predominantly involving the neck. A small focus of uptake inferior to the left clavicle with an SUV max 6.2 on image 95 is noted without a correlating lesion on CT images, possibly representing uptake in benign hypermetabolic brown fat. Mild relatively symmetric permanent subareolar soft tissue is noted bilaterally without elevated uptake, likely related to gynecomastia. METRICS: Mediastinal blood pool: SUV max 2.4, SUV mean 2.1 PET/PET skull to thigh INIT [id number] IMPRESSION: 1. A radiotracer avid right parotid mass is identified, compatible with the history of malignancy. 2. A radiotracer avid non pathologically enlarged lymph node posterior to the right parotid gland is noted concerning for metastasis. 3. Low-level uptake in a precarinal lymph node is identified, which can be inflammatory, infectious or malignant in etiology. 4. Two regions of focal elevated uptake in the bowel are noted, within the right colon and in a small bowel loop in the left mid pelvis. Assessment of the bowel wall is limited on the CT images provided. Physiologic or inflammatory uptake may account for this appearance, however, malignancy can not be entirely excluded, particularly within the region of greatest uptake involving the right colon. 5. Periodontal disease. 6. Enlarged prostate gland with mild diffuse uptake. Assessment of the prostate gland can be limited by F-18 FDG PET. Consider correlation with clinical findings/PSA level. 7. Additional nonurgent findings as detailed above.
== END 2024-12-14 07:59 | disposition home or self-care (01) ==
PROVIDERS: PCP Family Medicine Adult Medicine; Visit Provider Specialist
DX: C44.319 Basal cell carcinoma of skin of other parts of face (principal); R59.0 Localized enlarged lymph nodes; K05.6 Periodontal disease, unspecified; N40.0 Benign prostatic hyperplasia without lower urinary tract symptoms; J98.4 Other disorders of lung; R91.8 Other nonspecific abnormal finding of lung field; K75.3 Granulomatous hepatitis, not elsewhere classified; R93.3 Abnormal findings on diagnostic imaging of other parts of digestive tract; R93.89 Abnormal findings on diagnostic imaging of other specified body structures; M47.9 Spondylosis, unspecified; M79.89 Other specified soft tissue disorders
CPT/HCPCS: 78815; A9552

== ENCOUNTER → 2025-01-03 14:51 | Outpatient (BNVA) | payer MEDICARE, SELFPAY | PROVIDERS: PCP Family Medicine; Visit Provider Family Medicine | DX: Z13.6 Encounter for screening for cardiovascular disorders (principal) | CPT/HCPCS: 80053; 80061; 85025 ==

== ENCOUNTER → 2025-06-07 10:17 | Outpatient (BNVA) | payer MEDICARE, SELFPAY | PROVIDERS: PCP Family Medicine; Visit Provider Family Medicine | DX: R53.83 Other fatigue (principal); E53.8 Deficiency of other specified B group vitamins | CPT/HCPCS: 82607; 84443 ==

== ENCOUNTER 2025-07-08 09:14 | Outpatient (CLI) | payer MEDICARE, SELFPAY ==
--- NOTE | 2025-07-08 09:23 | XR_ITS ---
WS: [id number] XR lumbar spine 2-3V* [id number] REASON FOR EXAM: bilateral leg weakness FINDINGS: Mild straightening of the normal lordosis. Mild old chronic biconcave compression deformities L1-L3. Mild narrowing of the disc spaces with mild endplate sclerosis and osteophytosis L1-L5. Significant narrowing of the L5 disc space with significant endplate sclerosis and osteophytosis. No spondylolysis. No significant spondylolisthesis. XR/XR lumbar spine 2-3V* [id number] IMPRESSION: Lumbar degenerative spondylosis as above.
== END 2025-07-08 09:15 | disposition home or self-care (01) ==
LOC: RAD 09:16
PROVIDERS: PCP Family Medicine; Visit Provider Family Medicine
DX: R29.898 Other symptoms and signs involving the musculoskeletal system (principal); M48.54XA Collapsed vertebra, not elsewhere classified, thoracic region, initial encounter for fracture; M25.78 Osteophyte, vertebrae; M47.896 Other spondylosis, lumbar region
CPT/HCPCS: 72100

== ENCOUNTER 2025-07-26 07:59 | Outpatient (RCR) | payer MEDICARE, SELFPAY | END 2025-07-26 23:59 | disposition home or self-care (01) | LOC: SPT 07:59 | PROVIDERS: Visit Provider Family Medicine | DX: R29.898 Other symptoms and signs involving the musculoskeletal system (principal); R53.1 Weakness; R26.89 Other abnormalities of gait and mobility | CPT/HCPCS: 97162 ==

== ENCOUNTER 2025-07-27 05:00 | Outpatient (RCR) | payer MEDICARE, SELFPAY | END 2025-08-25 23:59 | disposition home or self-care (01) | LOC: SPT 05:00 | PROVIDERS: Visit Provider Family Medicine | DX: R29.898 Other symptoms and signs involving the musculoskeletal system (principal); R53.1 Weakness; R26.89 Other abnormalities of gait and mobility | CPT/HCPCS: 97110 ==

== ENCOUNTER 2025-08-26 05:00 | Outpatient (RCR) | payer MEDICARE, SELFPAY | END 2025-09-24 12:51 | disposition home or self-care (01) | LOC: SPT 05:00 | PROVIDERS: Visit Provider Family Medicine | DX: R29.898 Other symptoms and signs involving the musculoskeletal system (principal); R53.1 Weakness; R26.89 Other abnormalities of gait and mobility | CPT/HCPCS: 97110; 97530 ==

== ENCOUNTER 2025-09-10 12:00 | Outpatient (CLI) | payer MEDICARE, SELFPAY ==
--- NOTE | 2025-09-10 12:10 | CT_ITS ---
WS: [id number] CT NECK TECHNIQUE: Contrast-enhanced CT of the neck with coronal and sagittal reformatted images. CLINICAL INFORMATION: MALIGNANT NEOPLASM GLOTTIS/MASS COMPARISON: CT 10/31/2024 and PET/CT 12/14/2024 DLP: 146.[address] scans at [facility] use at least one of these dose optimization techniques: automated exposure control; mA and/or kV adjustment per patient size (includes targeted exams where dose is matched to clinical indication); or iterative reconstruction. FINDINGS: Again seen is the enhancing RIGHT parotid neoplasm today measuring 2.1 x 1.9 x 3.6 cm AP by transverse by craniocaudal. LEFT parotid gland is normal in appearance. Normal submandibular glands. Tongue base appears normal. Stable small low-attenuation cyst in the LEFT [place] tonsil. Normal vallecula and piriform sinuses. Normal epiglottis. No evidence of glottic or supraglottic mass. Tiny subcentimeter nodules in the thyroid. Aortic calcification. No cervical lymphadenopathy. Lung apices are well aerated. Moderate spondylitic changes cervical spine. Straightening of the normal cer vical lordosis. Prior LEFT CEA. Moderate calcified atheromatous disease RIGHT carotid bulb. CT/CT neck w con* [id number] IMPRESSION: 1. Stable enhancing RIGHT parotid neoplasm also demonstrated FDG activity on t he prior PET/CT. This is unchanged compared to the prior to 10/31/2024 2. Stable small lymph nodes posterior to the RIGHT parotid gland which demonst rated FDG activity on the prior PET/CT. 3. No cervical lymphadenopathy. 4. Stable low-attenuation cystic-appearing lesion LEFT [place] tonsil measuri ng 9 mm. 5. No other acute findings.
[2025-09-10 13:03] LABS: Blood Urea Nitrogen 14 mg/dL (8-23)
[2025-09-10] MEDS: iohexol 350 mg/mL 500 mL Btl (per mL) IV (13:08)
== END 2025-09-10 12:01 | disposition home or self-care (01) ==
LOC: RAD 12:06
PROVIDERS: PCP Family Medicine; Visit Provider Specialist
DX: C32.0 Malignant neoplasm of glottis (principal); Z85.819 Personal history of malignant neoplasm of unspecified site of lip, oral cavity, and pharynx; K09.1 Developmental (nonodontogenic) cysts of oral region
CPT/HCPCS: 70491; 82565; 84520